=== PATIENT | female | born 1945 | race Caucasian/White ===

== ENCOUNTER 2019-07-20 07:05 | Outpatient (REF) | payer OTHER, SELFPAY ==
[2019-07-20 11:02] LABS: Chol HDL Ratio 2.84 mg/dL (0.0-4.40); Cholesterol 156 mg/dL (0-200); Glucose 99 mg/dL (65-115); HDL Cholesterol 55 mg/dL (60-100); LDL Cholesterol Calculated 86 mg/dL (50-129); LDL HDL Ratio 1.56 RATIO (0.00-3.22); Thyroid Stimulating Hormone 3.13 uIU/mL (0.27-4.20); Triglycerides 73 mg/dL (0-150)
[2019-07-20 11:26] LABS: Estmated Average Glucose 117; Hemoglobin A1C 5.7 % (4.0-6.0)
== END 2019-07-20 07:06 | disposition home or self-care (01) ==
LOC: LAB 07:05
PROVIDERS: Family Provider Family Medicine; Visit Provider Dermatology
DX: Z01.89 Encounter for other specified special examinations (principal)
CPT/HCPCS: 80061; 82947; 83036; 84443

== ENCOUNTER 2024-04-09 11:23 | Emergency (ER) | payer MEDICARE, OTHER, SELFPAY ==
[2024-04-09 13:04] VITALS: BP 197/87; PULSE 92; RESP 18; TEMP 36.6; O2SAT 96; BMI 32.9
--- NOTE | 2024-04-09 13:35 | ED_ITS ---
HPI - Back Pain/Injury 2 General: Chief Complaint: Back Pain/Injury Stated Complaint: back extreme pain on right side Time Seen by Provider: 04/09/24 13:29 Source: patient and family Mode of arrival: ambulatory Limitations: no limitations History of Present Illness: Patient is a 78-year-old female who presents to the ED today along with family for evaluation of right-sided back pain that began earlier this morning. She states pain has been constant since onset. She states over the past several days she has been having UTI-like symptoms including dysuria and frequency/urgency. She has been taking some leftover Amoxicillin for this. She states she has a longstanding history of UTIs and states I usually do not notice them until they are severe . She is not having any severe abdominal pain- maybe a little bit of pain . She states she has some nausea but has not had any episodes of emesis. No changes in her bowel movements. She is not complaining of hematuria. No previous history of nephro or ureterolithiasis. No fevers. MD elicited complaint: back pain Onset (ago): hour(s) Timing: constant Severity: moderate Similar Symptoms Previously: No Location: right flank Radiation: none Exacerbating factors: none Relieving factors: none Associated symptoms: Reports abdominal pain, dysuria, nausea and urinary urgency; Deny chills, fatigue, fever(s), hematuria or vomiting Work related injury: No Related Data Previous Rx's Medication Instructions Recorded ciprofloxacin HCl 500 mg tablet 500 mg PO Q12H #14 tabs 04/09/24 (Cipro) Allergies Allergy/AdvReac Type Severity Reaction Status Date / Time No Known Allergies Allergy Unverified 08/11/22 09:49 Review of Systems 2 Const: Denies: fever(s), chills, body aches, fatigue or malaise Card: Denies: chest pain Resp: Denies: dyspnea GI: Reports: abdominal pain and nausea; Denies: vomiting or diarrhea : Reports: flank pain, dysuria, urinary frequency and urinary urgency; Denies: difficulty voiding, urinary hesitancy, hematuria or pelvic pain Musc: Reports: back pain (R flank); Denies: neck pain, extremity pain, extremity swelling, joint pain or joint swelling Skin/Breast: Denies: rash Neuro: Denies: headache(s), numbness in extremities, weakness in extremities or sensory changes Physical Exam 2 Const: COMMON NORMALS: no acute distress, average body habitus, patient oriented x3, no limitations, healthy appearing, alert and well nourished O RIENTATION/CONSCIOUSNESS: Yes awake, Yes oriented to person, Yes oriented to place and Yes oriented to time Resp: COMMON NORMALS: normal respiratory effort and clear to auscultation bilaterally AUSCULTATION: clear to auscultation bilaterally Cardio: COMMON NORMALS: regular rate and regular rhythm RATE: regular rate RHYTHM: regular rhythm GI: COMMON NORMALS: Normal to inspection, nondistended, normoactive bowel sounds present, Soft to palpation, No hepatosplenomegaly present and no masses INSPECTION: Yes normal to inspection PALPATION: Yes Soft to palpation, Yes Tenderness to palpation present (GI) (mild lower abdominal tenderness-non surgical exam), No Guarding due to palpation present (GI), No Rigid due to palpation and Yes No hepatosplenomegaly present : BLADDER/KIDNEY EXAM: Yes CVA tenderness on the right Back/Pelvis: COMMON NORMALS: thoracic and lumbar spine normal to inspection, no thoracic nor lumbar tenderness and straight leg raise negative bilaterally GENERAL BACK: Yes CVA tenderness Extremity: GENERAL: Yes normal exam except as noted Neuro: COMMON NORMALS: patient oriented x3 SENSORIUM/ORIENTATION: Yes alert, Yes oriented to person, Yes oriented to place and Yes oriented to time Skin: COMMON NORMALS: no rashes or lesions noted GENERAL SKIN EXAM: no rashes or lesions noted Course 2 Vital Signs: Vital signs: Vital Signs Temperature 97.8 F 04/09/24 13:04 Pulse Rate 78 04/09/24 14:37 Respiratory Rate 18 04/09/24 14:33 Blood Pressure 139/67 04/09/24 14:37 Pulse Oximetry 93 04/09/24 14:37 Oxygen Delivery Me thod Room Air 04/09/24 14:37 MDM - Back Pain/Injury Medical Decision Making Patient is a very nice 78-year-old female here with family after she began having dysuria, frequency/urgency over the past few days and now presenting with right flank pain. She has felt nauseous. She has not had any fevers or vomiting. She clinically appears in no acute distress. Vital signs are stable. Blood work showing a white count of 13.8. UA is consistent with infection with 1+ leukocyte esterase and 11-20 WBCs. Will treat for ascending UTI. Based on history I think renal calculi less likely. Will give dose of Rocephin prior to discharge. Recommend follow-up with primary care by the end of the week. Return to ED precautions given. Medical Records I reviewed the patient's medical records. Labs I reviewed the patient's lab results. 04/09/24 13:40 04/09/24 13:40 Laboratory Results WBC 13.84 10^3/uL (3.29-11.43) H 04/09/24 13:40 RBC 4.86 10^6/uL (3.85-5.65) 04/09/24 13:40 Hgb 14.60 g/dL (11.27-16.99) 04/09/24 13:40 Hct 45.5 % (36-47) 04/09/24 13:40 MCV 93.6 fl (85-98) 04/09/24 13:40 MCH 30.0 pg (27-33) 04/09/24 13:40 MCHC 32.1 g/dL (30-55) 04/09/24 13:40 RDW 12.9 % (12.1-15.1) 04/09/24 13:40 Plt Count 308 10^3/cmm (157-399) 04/09/24 13:40 MPV 9.9 fL (7.4-10.4) 04/09/24 13:40 Neut % (Auto) 84.2 % 04/09/24 13:40 Lymph % (Auto) 11.1 % 04/09/24 13:40 [place] % (Auto) 3.8 % 04/09/24 13:40 Eos % (Auto) 0.1 % 04/09/24 13:40 Baso % (Auto) 0.4 % 04/09/24 13:40 Neut # (Auto) 11.66 10^3/uL (1.8-7.7) H 04/09/24 13:40 Lymph # (Auto) 1.5 10^3/uL (0.8-4.8) 04/09/24 13:40 [place] # (Auto) 0.5 10^3/uL (0.2-0.9) 04/09/24 13:40 Eos # (Auto) 0.0 10^3/uL (0.0-0.8) 04/09/24 13:40 Baso # (Auto) 0.1 10^3/uL (0.0-0.1) 04/09/24 13:40 Nucleated RBC % (auto) 0 % 04/09/24 13:40 Nucleated RBCs # 0.0 /100WBC 04/09/24 13:40 Sodium 136 mmol/L (136-145) 04/09/24 13:40 Potassium 4.0 mmol/L (3.5-5.1) 04/09/24 13:40 Chloride 100 mmol/L (98-107) 04/09/24 13:40 Carbon Dioxide 26 mmol/L (22-29) 04/09/24 13:40 Anion Gap 14.0 (5-19) 04/09/24 13:40 BUN 17 mg/dL (8-23) 04/09/24 13:40 Creatinine 0.4 mg/dL (0.5-0.9) L 04/09/24 13:40 GFR Calculation Not Reportable 04/09/24 13:40 Glucose 134 mg/dL (65-115) H 04/09/24 13:40 Calculated Osmolality 286 mOsm/kg (285-295) 04/09/24 13:40 Calcium 9.1 mg/dL (8.5-10.5) 04/09/24 13:40 Total Bilirubin 0.3 mg/dL (0.15-1.2) 04/09/24 13:40 AST 21 U/L (0-32) 04/09/24 13:40 ALT 17 U/L (0-33) 04/09/24 13:40 Alkaline Phosphatase 88 U/L (35-105) 04/09/24 13:40 Total Protein 7.1 g/dL (6.6-8.7) 04/09/24 13:40 Albumin 4.4 g/dL (3.5-5.2) 04/09/24 13:40 Globulin 2.7 g/dL (1.3-4.6) 04/09/24 13:40 Urine Color Dark yellow (Yellow) A 04/09/24 14:35 Urine Appearance Clear (CLEAR) 04/09/24 14:35 Urine pH 5.5 (5-7) 04/09/24 14:35 Ur Specific [place] 1.024 (1.005-1.030) 04/09/24 14:35 Urine Protein Trace (Negative) A 04/09/24 14:35 Urine Glucose (UA) Negative (Normal) 04/09/24 14:35 Urine Ketones Negative (Negative) 04/09/24 14:35 Urine Blood 1+ (Negative) A 04/09/24 14:35 Urine Nitrate Negative (Negative) 04/09/24 14:35 Urine Bilirubin Negative (Negative) 04/09/24 14:35 Urine Urobilinogen 1.0 mg/dL (Negative) 04/09/24 14:35 Ur Leukocyte Esterase 1+ (Negative) A 04/09/24 14:35 Urine RBC 10-15 /hpf (0-2) H 04/09/24 14:35 Urine WBC 11-20 /hpf (0-5) H 04/09/24 14:35 Ur Squamous Epith Cells 5-10 /hpf (0-5) H 04/09/24 14:35 Calcium Oxalate Crystal 15-25 /hpf H 04/09/24 14:35 Amorphous Sediment Not Reportable 04/09/24 14:35 Urine Bacteria Trace /hpf (NONE) 04/09/24 14:35 Urine Mucus 1+ /hpf 04/09/24 14:35 No radiology studies performed this visit Discharge Plan Discharge Patient Disposition: Home Clinical Impression: Pyelonephritis Condition: Stable Prescriptions: New ciprofloxacin HCl [Cipro] 500 mg tablet 500 mg PO Q12H Qty: 14 0RF Discharge Orders: Discharge ED (Routine); Ordered 04/09/24 Ordered By: Rachell Villatoro Referrals: Elaine Greenwood MD [Family Provider] - Patient Instructions: Kidney Infection (ED), Urinary Tract Infection in Older Adults (ED), Pyelonephritis Activity Restrictions/Additional Instructions: As we discussed, please fill your antibiotics and start them immediately. You need to return to the emergency department for worsening flank pain, repetitive episodes of vomiting, inability to hold down your antibiotics, fevers, generally feeling worse or unwell, or any other concerns you may have. Please follow-up with primary care by the end of the week for reevaluation. I hope you begin to feel better soon. Coding Level of Care Code ED Mechanical Operator for Griselda Doshi
[2024-04-09 14:00] LABS: Basophils # 0.1 10^3/uL (0.0-0.1); Basophils % 0.4 %; Eosinophils % 0.1 %; Hematocrit 45.5 % (36-47); Lymphocytes # 1.5 10^3/uL (0.8-4.8); Lymphocytes % 11.1 %; Mean Corpuscular HGB Conc 32.1 g/dL (30-55); Mean Corpuscular Volume 93.6 fl (85-98); Mean Platelet Volume 9.9 fL (7.4-10.4); Monocytes # 0.5 10^3/uL (0.2-0.9); Monocytes % 3.8 %; Neutrophils # 11.66 10^3/uL (1.8-7.7); Neutrophils % 84.2 %; Nucleated Red Blood Cells % 0 %; Platelet Count 308 10^3/cmm (157-399); Red Blood Count 4.86 10^6/uL (3.85-5.65); Red Cell Distribution Width 12.9 % (12.1-15.1); White Blood Count 13.84 10^3/uL (3.29-11.43)
[2024-04-09 14:21] LABS: Alanine Aminotransferase 17 U/L (0-33); Albumin Level 4.4 g/dL (3.5-5.2); Alkaline Phosphatase 88 U/L (35-105); Aspartate Amino Transferase 21 U/L (0-32); Blood Urea Nitrogen 17 mg/dL (8-23); Calcium 9.1 mg/dL (8.5-10.5); Carbon Dioxide 26 mmol/L (22-29); Chloride 100 mmol/L (98-107); Creatinine Clr Calc Pharmacy 63.8973; Globulin 2.7 g/dL (1.3-4.6); Glucose 134 mg/dL (65-115); Osmolality Calculated 286 mOsm/kg (285-295); Sodium 136 mmol/L (136-145); Total Bilirubin 0.3 mg/dL (0.15-1.2); Total Protein 7.1 g/dL (6.6-8.7)
[2024-04-09 14:33] VITALS: RESP 18
[2024-04-09] MEDS: ondansetron 2 mg/ML SDV 2 mL 4 MG IVP (14:33)
[2024-04-09] MEDS: morphine 4 mg/mL SDV 1 mL IVP (14:33)
[2024-04-09 14:37] VITALS: BP 139/67; PULSE 78; O2SAT 93
[2024-04-09 14:47] LABS: Bilirubin Urine Negative (Negative); Blood Urine 1+ (Negative); Glucose Urine UA Negative (Normal); Ketones Urine Negative (Negative); Leukocyte Esterase Urine 1+ (Negative); Nitrate Urine Negative (Negative); Protein Urine Trace (Negative); Specific Gravity, Urine 1.024 (1.005-1.030); Urine Appearance Clear (CLEAR); Urine Color Dark Yellow (Yellow); pH Urine 5.5 (5-7)
[2024-04-09 15:05] LABS: Add Urine Microscopic? YES; Bacteria Urine TRACE /hpf
[2024-04-09 15:06] LABS: Mucus Urine 1+ /hpf
[2024-04-09 15:07] LABS: Add Urine Culture? Yes; Calcium Oxalate Crystals Urine 15-25 /hpf
[2024-04-09 15:28] VITALS: BP 94/48; PULSE 70; O2SAT 95
[2024-04-09] MEDS: cefTRIAXone 1,000 mg SDV 1000 MG IVP (15:30)
[2024-04-09 15:40] VITALS: BP 94/48; PULSE 70; O2SAT 95
== END 2024-04-09 15:44 | disposition home or self-care (01) ==
PROVIDERS: Emergency Provider Physician Assistant; Family Provider Family Medicine
DX: N12 Tubulo-interstitial nephritis, not specified as acute or chronic (principal); Z87.440 Personal history of urinary (tract) infections
CPT/HCPCS: 80053; 81001; 85025; 87077; 87086; 87186; 96374; 96375; 99284; J0696; J2270; J2405